=== PATIENT | female | born 1975 | race Hispanic/Latino ===

== ENCOUNTER 2018-12-01 06:37 | Observation (INO) | payer OTHER ==
[2018-11-30 17:09] LABS: BASOPHILS % (AUTO) 1.1 % (0.0-5.0); EOSINOPHILS % (AUTO) 1.4 % (0.0-8.0); HEMATOCRIT 40.4 % (36-48); LYMPHOCYTES % (AUTO) 34.6 % (21.0-51.0); MEAN CORPUSCULAR HEMOGLOBIN 30.8 pg (27.0-33.0); MEAN CORPUSCULAR HGB CONC 33.8 g/dL (32.0-36.0); MEAN CORPUSCULAR VOLUME 90.9 fL (79-99); MONOCYTES % (AUTO) 5.5 % (3.0-13.0); NEUTROPHILS % (AUTO) 57.4 % (40.0-77.0); PLATELET COUNT (AUTO) 258 K/uL (130-400); RED BLOOD CELL COUNT(AUTO) 4.45 MIL/uL (4.00-5.50); RED CELL DISTRIBUTION WIDTH 13.5 % (11.0-15.5); WHITE BLOOD COUNT (AUTO) 6.7 K/uL (4.8-10.8)
[2018-11-30 17:11] VITALS: BP 104/70
[~2018-12-01] VITALS: Ht 162.6 cm; Wt 78.4 kg
[2018-12-01] VITALS (24 sets, daily range): BP systolic 85–113; BP diastolic 47–74
[2018-12-01] MEDS: CEFAZOLIN SODIUM 1 GM VIAL IVP SCH ×2 (06:00→08:55)
[~2018-12-01 06:37] MED LIST: CALDOLOR 800MG+NS 250ML 250 ML IV SCH; DOXY50TA14 PO; LACTATED RINGERS 1000ML 1,000 ML IV SCH
[2018-12-01] MEDS ORDERED: LIDOCAINE PF 2% 5ML ABBOJECT ONE (08:16)
[2018-12-01] MEDS ORDERED: ONDANSETRON HCL MDV 20ML 2 MG/ML VIAL ONE ×2 (08:16→08:19)
[2018-12-01] MEDS ORDERED: PROPOFOL 10 MG/ML 20ML VIAL IV ONE (08:17)
[2018-12-01] MEDS ORDERED: MIDAZOLAM HCL 1 MG/ML 2ML VIAL ONE (08:18)
[2018-12-01] MEDS ORDERED: ROCURONIUM 10MG/1ML SYR 10 MG/ML ML ONE (08:18)
[2018-12-01] MEDS ORDERED: FENTANYL CITRATE PF 50 MCG/1 ML 5ML AMP IV ONE (08:20)
[2018-12-01] MEDS ORDERED: HYDROMORPHONE 1 MG/1 ML AMP ONE (08:27)
[2018-12-01] MEDS ORDERED: EPHEDRINE SULFATE 50 MG/ML AMPULE ONE (08:44)
[2018-12-01] MEDS ORDERED: FENTANYL CITRATE PF 50 MCG/1 ML 2ML VIAL ONE (09:55)
[2018-12-01] MEDS ORDERED: PHENYLEPHRINE HCL 10 MG/ML 1ML VIAL IV ONE (10:01)
[2018-12-01] MEDS ORDERED: NEOSTIGMINE 5MG/5ML SYR IV ONE (10:27)
[2018-12-01] MEDS ORDERED: GLYCOPYRROLATE 1 MG/5 ML SYRINGE ONE (10:27)
--- NOTE | 2018-12-01 12:00 | NUR ---
REPORT RECEIVED FROM JACOB, LACE MACHINE OPERATOR AND PATIENT TRANSFERED AT THIS TIME. PATIENT STABLE AND DENIES PAIN. ORIENTED PATIENT TO UNIT AND CALL LIGHT LEFT AT BEDSIDE. BULLARD DRAINING CLEAR YELLOW URINE AND PIV INFUSING WELL.
[2018-12-01] MEDS: SIMETHICONE 80 MG TAB.CHEW PO PRN ×2 (13:28→18:34)
[2018-12-01] MEDS: ACETAMINOPHEN-CODEINE 300/30MG TAB PO PRN (13:28)
[2018-12-01] MEDS: DOCUSATE SODIUM 100 MG CAP PO PRN (13:28)
[2018-12-01] MEDS ORDERED: BISACODYL 10 MG SUPP.RECT RC PRN (13:30)
[2018-12-01] MEDS ORDERED: IBUPROFEN 800 MG TAB PO SCH (13:30)
[2018-12-01] MEDS ORDERED: METHYLENE BLUE 10 MG/ML AMP ONE (13:34)
--- NOTE | 2018-12-01 18:00 | NUR ---
DR. WILEY CALLED AND REQUESTED ORDER FOR ZOFRAN OR REGLAN FOR N/V. ORDER GIVEN FOR BOTH AND PHENERGAN 25MGS TO BE GIVEN IF NAUSEA PERSISTS.
[2018-12-01] MEDS ORDERED: METOCLOPRAMIDE 10 MG/2 ML VIAL IVP SCH (18:15)
[2018-12-01] MEDS ORDERED: PROMETHAZINE HCL 25 MG/ML 1ML AMPULE IM PRN (18:15)
[2018-12-01] MEDS ORDERED: ONDANSETRON HCL 4 MG/2 ML VIAL IVP PRN (18:15)
[2018-12-01] MEDS: LACTATED RINGERS 1000ML 1,000 ML IV SCH (18:33)
--- NOTE | 2018-12-01 19:15 | NUR ---
REPORT GIVEN TO [place] RUFF LVN. PATIENT CARE TRANSFERED AT THIS TIME.
[2018-12-01] MEDS: HYDROCODONE/ACETAMINOPHEN 5/325 MG TAB PO PRN (20:58)
[2018-12-02] MEDS: LACTATED RINGERS 1000ML 1,000 ML IV SCH ×2 (02:06→10:58)
[2018-12-02] MEDS: HYDROCODONE/ACETAMINOPHEN 5/325 MG TAB PO PRN (02:39)
[2018-12-02 02:45] VITALS: BP 97/49
[2018-12-02 05:44] LABS: BASOPHILS % (AUTO) 0.3 % (0.0-5.0); EOSINOPHILS % (AUTO) 0.3 % (0.0-8.0); HEMATOCRIT 33.9 % (36-48); LYMPHOCYTES % (AUTO) 31.6 % (21.0-51.0); MEAN CORPUSCULAR HEMOGLOBIN 31.4 pg (27.0-33.0); MEAN CORPUSCULAR HGB CONC 34.7 g/dL (32.0-36.0); MEAN CORPUSCULAR VOLUME 90.4 fL (79-99); MONOCYTES % (AUTO) 6.7 % (3.0-13.0); NEUTROPHILS % (AUTO) 61.1 % (40.0-77.0); PLATELET COUNT (AUTO) 190 K/uL (130-400); RED BLOOD CELL COUNT(AUTO) 3.75 MIL/uL (4.00-5.50); RED CELL DISTRIBUTION WIDTH 13.5 % (11.0-15.5)
--- NOTE | 2018-12-02 06:00 | NUR ---
BULLARD CATHETER REMOVED F/C, TOLERATED WELL, INSTRUCTED PATIENT TO CALL NURSE WHEN SHE HAS URGE TO VOID, ACKNOWLEDGES UNDERSTANDING Addendum: 12/02/18 at 0634 by ARSLAN RUFF LVN Amended: Links added.
[2018-12-02 07:58] VITALS: BP 104/63
[2018-12-02] MEDS: DOCUSATE SODIUM 100 MG CAP PO PRN (08:38)
[2018-12-02] MEDS: SIMETHICONE 80 MG TAB.CHEW PO PRN ×2 (08:38→14:38)
[2018-12-02] MEDS: IBUPROFEN 800 MG TAB PO PRN ×2 (08:48→14:39)
--- NOTE | 2018-12-02 10:30 | NUR ---
PATIENT VOIDED 175CC OF YELLOW URINE WITH A SMALL BLOOD TINGE.
--- NOTE | 2018-12-02 11:45 | NUR ---
PATIENT UP AND VOIDED 550CC AND 30 MINUTES LATER VOIDED 300CC MORE.
[2018-12-02 12:00] VITALS: BP 120/73
[2018-12-02] MEDS: ACETAMINOPHEN-CODEINE 300/30MG TAB PO PRN (13:31)
--- NOTE | 2018-12-02 14:20 | NUR ---
DR. CHAIDEZ ROUNDED AND DISCHARGED PATIENT TO HOME. PATIENT WAS GIVEN OPTION OF STAYING OR LEAVING AND DECIDED TO GO HOME.
[2018-12-02] MEDS ORDERED: BENZOCAINE/LANOLIN/ALOE VERA 60 ML AEROSOL TP PRN (14:30)
[2018-12-02 15:50] VITALS: BP 105/70
--- NOTE | 2018-12-02 16:00 | NUR ---
PATIENT WAS MEDICATED, GIVEN SITZ BATH AND WAS ABLE TO USE X 1 AND DERMAPLAST SPRAY APPLIED. PATIENT STATES FEELING BETTER AFTER SITZ BATH AND PAIN MEDICATION. PIV REMOVED AND PATIENT INSTRUCTED TO GET READY FOR DISCHARGE.
--- NOTE | 2018-12-02 16:30 | NUR ---
DISCHARGE INSTRUCTIONS GIVEN AND PATIENT VERBALIZED UNDERSTANDING INSTRUCTIONS GIVEN. SCRIPT FOR PAIN MANAGEMENT AT HOME GIVEN.
--- NOTE | 2018-12-02 16:50 | NUR ---
PATIENT WAS TAKEN VIA W/C TO FAMILY VEHICLE AND WAS DISCHARGED TO HER FAMILY IN STABLE CONDITION. PIV WAS REMOVED PRIOR TO DISCHARGE.
== END 2018-12-02 16:50 | disposition home or self-care (01) ==
LOC: DAH 06:37 → DAHIP 06:38 → WSH 11:45
PROVIDERS: ADMIT Obstetrics & Gynecology; ATTEND Obstetrics & Gynecology
DX: N39.3 Stress incontinence (female) (male) (principal); N81.10 Cystocele, unspecified; N81.6 Rectocele
CPT/HCPCS: 36415 ×2; 57260; 84703; 85025 ×2; 86850; 86900; 86901; 96374; A4215; A4218; A4344; A4351; A4510; A4600; G0378 ×34; J0690; J1170; J1741; J2001; J2250; J2370; J2704; J2710; J2765; J3010 ×2; J3490 ×2; J7030; J7120; Q9968